=== PATIENT | male | born 1975 | race African-American/Black ===

== ENCOUNTER 2016-04-22 14:07 | Emergency (ER) | payer BC, MEDICAID ==
[~2016-04-22] VITALS: Ht 193 cm; Wt 145.1 kg
--- NOTE | 2016-04-22 14:10 | NUR ---
PT BIB [facility] S/P OD ON 10 2MG RISPERIDONE PILLS TODAY. PT HAS HX OF DEPRESSION BUT NO PRIOR SUICIDE ATTEMPTS; DENIES SI AT THIS TIME. PT APPEARS DROWSY, STATES "I JUST FEEL TIRED". RESP EVEN UNLABORED. SKIN WARM NONDIAPHORETIC. FOLLOWING STAFF INSTRUCTION CALMLY. IN ER BED 10 ON MONITOR.
[2016-04-22] MEDS ORDERED: ARIP2TAB9 PO (14:46)
[2016-04-22 14:49] LABS: BASOPHILS # (AUTO) 0.1 /CMM (0.0-0.2); EOSINOPHILS # (AUTO) 0.1 /CMM (0.0-0.7); EOSINOPHILS % (AUTO) 0.9 % (0.0-6.0); HEMATOCRIT 50 % (39-51); HEMOGLOBIN 16.7 g/dL (13.5-17.5); LYMPHOCYTES # (AUTO) 2.4 /CMM (0.8-4.8); LYMPHOCYTES % (AUTO) 43.7 % (20.0-44.0); MEAN CORPUSCULAR HEMOGLOBIN 30 PG (26.0-33.0); MEAN CORPUSCULAR HGB CONC 34 g/dl (31.0-36.0); MEAN CORPUSCULAR VOLUME 89 fL (80-96); MONOCYTES # (AUTO) 0.4 /CMM (0.1-1.30); MONOCYTES % (AUTO) 6.8 % (2.0-12.0); NEUTROPHILS # (AUTO) 2.6 /CMM (1.8-8.9); NEUTROPHILS % (AUTO) 47.6 % (43.0-81.0); PLATELET COUNT (AUTO) 270 /CMM (150-450); RDW COEFFICIENT OF VARIATION 13.1 (11.5-15.0); RED BLOOD CELL COUNT(AUTO) 5.54 MIL/uL (4.5-6.0); WHITE BLOOD COUNT (AUTO) 5.6 K/uL (4.3-11.0)
--- NOTE | 2016-04-22 14:51 | NUR ---
CALLED [facility], SPOKE WITH TYERSE, TOLD HIM ABOUT PT'S SITUATION, HE RECOMMENDED TO GET AN EKG TO MAKE SURE THAT IT LOOKS OK, HE SAID NO CHARCOAL WOULD BE NEEDED, REPEAT THE CHEM LABS 4 HOURS FROM THE INITIAL ONE, CHECK TYLENOL AND ASPIRIN LEVELS, MONITOR PT FOR 6 HOURS TOTAL
[2016-04-22 14:58] LABS: CALCIUM, SERUM 8.9 mg/dL (8.5-10.1); CARBON DIOXIDE 29 mmol/L (21-32); CHLORIDE 103 mmol/L (98-107); CREATININE 1.6 mg/dL (0.6-1.3); GFR 59 mL/min (>60); GLUCOSE 136 mg/dL (74-106); POTASSIUM 3.3 mmol/L (3.5-5.1); SODIUM SERUM 140 mmol/L (136-145); UREA NITROGEN, BLOOD 11 mg/dL (7-18)
[2016-04-22 15:08] LABS: ACETAMINOPHEN 0 ug/ml (10-30); ALANINE AMINOTRANSFERASE 75 U/L (12-78); ALBUMIN 3.9 g/dL (3.4-5.0); ALCOHOL, BLOOD < 3 mg/dL (0-0); ALKALINE PHOSPHATASE 103 U/L (46-116); ASPARTATE AMINOTRANSFERASE 33 U/L (15-37); BILIRUBIN,DIRECT 0.2 mg/dL (0.0-0.2); BILIRUBIN,TOTAL 0.7 mg/dL (0.2-1.0); SALICYLATE 2.1 mg/dL (2.8-20.0); TOTAL PROTEIN, SERUM 7.6 g/dL (6.4-8.2)
[2016-04-22 16:58] LABS: PHENCYCLIDINE SCREEN,URINE NEGATIVE (NEGATIVE)
[2016-04-22 17:01] LABS: APPEARANCE,URINE Clear (CLEAR); BILIRUBIN,URINE SMALL (NEGATIVE); BLOOD, URINE Small Ery/uL (NEGATIVE); COLOR,URINE Yellow (YELLOW); KETONES,URINE Trace (NEGATIVE); LEUKOCYTE ESTERASE ,URINE Negative (NEGATIVE); NITRITE, URINE Negative (NEGATIVE); PH,URINE 6.5 (5.0-8.0); PROTEIN,URINE 100 mg/dl (NEGATIVE); UGLUCOSE Negative (NEGATIVE)
--- NOTE | 2016-04-22 17:01 | NUR ---
RESTING QUIETLY, NAD NOTED. ALL NEEDS ATTENDED TO.
[2016-04-22 17:05] LABS: CANNABINOID, URINE POSITIVE (NEGATIVE)
[2016-04-22 17:07] LABS: ADD URINE CULTURE NO; BACTERIA,URINE Few /HPF (None Seen)
[2016-04-22 17:16] LABS: SQUAMOUS EPITHELIAL CELL,UR Rare /HPF (None Seen)
[2016-04-22] MEDS ORDERED: IV NS 0.9% 1,000 ML ONE (18:21)
[2016-04-22] MEDS ORDERED: IV SET PRIMARY 1 EA INFUS.SET MC ONE (18:21)
[2016-04-22 20:27] LABS: CALCIUM, SERUM 8.3 mg/dL (8.5-10.1); CREATININE 1.6 mg/dL (0.6-1.3); POTASSIUM 3.9 mmol/L (3.5-5.1)
--- NOTE | 2016-04-22 20:32 | NUR ---
REPORT GIVEN TO EDITH ELLER INTAKE
--- NOTE | 2016-04-22 20:41 | NUR ---
REPEAT EKG COMPLETED. PT CALM, RESTING QUIETLY, NAD NOTED, ALL NEEDS ATTENDED TO. HR REMAINS IN 120'S ST; AWARE.
[2016-04-22] MEDS ORDERED: LORAZEPAM INJ 2 MG/ML VIAL IV ONE (21:00)
[2016-04-22] MEDS ORDERED: LORAZEPAM INJ 2 MG/ML VIAL ONE (21:09)
--- NOTE | 2016-04-22 21:39 | NUR ---
[facility] CALLED FOR TRANSPORT TO [facility]. ETA 45 MIN- 1HR
--- NOTE | 2016-04-22 22:32 | NUR ---
REPORT GIVEN TO MAI NICOLE FOR TRANSFER TO [facility]
--- NOTE | 2016-04-22 23:39 | NUR ---
CALLED [facility], SPOKE TO SUSAN NICOLE. PER DR. SHOEMAKER, ACCEPTING MD AT [facility] WILL ACCEPT PT WITH SPIKES OF HR TO 130'S UPON MOVEMENT. HR SLOWS TO SR 80-90'S UPON RESTING.
[2016-04-22 23:40] VITALS: BP 129/62
--- NOTE | 2016-04-22 23:42 | NUR ---
PT TRANSPORTED TO [facility] VIA [facility] IN STABLE CONDITION. ALL PAPERWORK WITH PT.
== END 2016-04-22 23:52 ==
LOC: ER 14:08
DX: T43.502A Poisoning by unspecified antipsychotics and neuroleptics, intentional self-harm, initial encounter (principal); I10 Essential (primary) hypertension; F20.9 Schizophrenia, unspecified; F12.10 Cannabis abuse, uncomplicated; Y92.89 Other specified places as the place of occurrence of the external cause
CPT/HCPCS: 36415; 80048-TC; 80076-TC; 80305; 81000-TC; 84484-TC; 85025-TC; A4606; G0480; G6039-TC; J2060; J7030; Z7610